=== PATIENT | female | born 1985 | race Caucasian/White ===

== ENCOUNTER 2017-03-30 04:09 | Emergency (ER) | payer OTHER ==
[2017-03-30 04:38] LABS: PLATELET COUNT 266 x10^3mcL (130-400)
[2017-03-30 04:46] LABS: CALCIUM 9.2 mg/dL (8.5-10.1); CARBON DIOXIDE 25.4 mmol/L (21-32); CHLORIDE SERUM 101 mmol/L (98-107); CREATININE SERUM 0.7 mg/dL (0.6-1.0); GFR1 > 60 mL/min; GLUCOSE SERUM 111 mg/dL (74-106); POTASSIUM SERUM 3.6 mmol/L (3.5-5.1); SODIUM SERUM 138 mmol/L (136-145)
[2017-03-30 04:48] LABS: ALBUMIN 4.1 g/dL (3.4-5.0); ALKALINE PHOSPHATASE 122 U/L (46-116); ALT/SGPT 21 U/L (14-59); AMYLASE 83 U/L (25-115); AST/SGOT 18 U/L (15-37); BASOPHIL % 0 % (0-2); BILIRUBIN TOTAL 0.7 mg/dL (0.20-1.00); LIPASE 128 IU/L (73-393); RED CELL DISTRIBUTION WIDTH 16.9 % (11.5-14.5)
[2017-03-30 04:54] LABS: TOTAL PROTEIN, SERUM 8.3 g/dL (6.4-8.2)
[2017-03-30 06:15] VITALS: BP 128/82
== END 2017-03-30 06:16 | disposition home or self-care (01) ==
LOC: ED 04:09
PROVIDERS: Emergency Medicine
DX: N23 Unspecified renal colic (principal)
CPT/HCPCS: J2270; J2405

== ENCOUNTER 2017-04-01 21:05 | Emergency (ER) | payer OTHER ==
[2017-04-01 22:45] LABS: BASOPHIL % 0.9 % (0-2); PLATELET COUNT 298 x10^3mcL (130-400)
[2017-04-01 22:49] LABS: CALCIUM 9.4 mg/dL (8.5-10.1); CARBON DIOXIDE 28.5 mmol/L (21-32); CHLORIDE SERUM 105 mmol/L (98-107); CREATININE SERUM 0.8 mg/dL (0.6-1.0); GFR1 > 60 mL/min; GLUCOSE SERUM 115 mg/dL (74-106); POTASSIUM SERUM 4.2 mmol/L (3.5-5.1); SODIUM SERUM 140 mmol/L (136-145)
[2017-04-01 22:52] LABS: ALBUMIN 3.9 g/dL (3.4-5.0); ALKALINE PHOSPHATASE 110 U/L (46-116); ALT/SGPT 20 U/L (14-59); AMYLASE 94 U/L (25-115); AST/SGOT 14 U/L (15-37); BILIRUBIN TOTAL 0.39 mg/dL (0.20-1.00); LIPASE 120 IU/L (73-393); RED CELL DISTRIBUTION WIDTH 16.3 % (11.5-14.5); TOTAL PROTEIN, SERUM 8.1 g/dL (6.4-8.2)
[2017-04-01 23:02] LABS: UA SPECIFIC GRAVITY 1.015 (1.005-1.035)
[2017-04-01 23:03] LABS: microscopic required? YES; urine erythrocyte 2+ (NEGATIVE)
[2017-04-02 01:00] VITALS: BP 124/82
== END 2017-04-02 01:00 | disposition home or self-care (01) ==
LOC: ED 21:05
PROVIDERS: Emergency Medicine
DX: N20.0 Calculus of kidney (principal)
CPT/HCPCS: J2270; J2405; J7030